=== PATIENT | female | born 1945 | race Caucasian/White ===

== ENCOUNTER → 2017-11-22 | Outpatient (CLI) | payer MEDICARE ==
[~2017-11-22] MED LIST: LAVAP17G PO; METF500 PO; OMEP20ER; [UNRECOGNIZED DRUG - REMARK]; [UNRECOGNIZED DRUG - REMARK]; [UNRECOGNIZED DRUG - REMARK]
== END ==
LOC: LAB 14:30 → LAB SHORT 14:30
PROVIDERS: Family Medicine
DX: Z12.72 Encounter for screening for malignant neoplasm of vagina (principal); Z90.710 Acquired absence of both cervix and uterus
CPT/HCPCS: G0145

== ENCOUNTER → 2020-10-17 | Outpatient (CLI) | payer OTHER ==
[2020-10-17 20:05] LABS: Alanine Aminotransfer (ALT/SGP 28 U/L (12-78); Albumin, Blood 4.1 g/dL (3.4-5.0); Albumin/Globulin Ratio 1.1 (0.8-1.8); Alk Phos 127 U/L (50-136); Anion Gap 5 mmol/L (6-16); Aspartate Aminotrans (AST/SGOT 7 U/L (12-37); Bilirubin, Total 0.7 mg/dL (0.1-1.0); Blood Urea Nitrogen 14 mg/dL (8-24); Bun/Creatinine Ratio 23.5 (12.0-20.0); CO2, Blood 28 mmol/L (21-32); Calcium, Blood 9.1 mg/dL (8.5-10.1); Chloride, Blood 102 mmol/L (98-108); Globulin, Blood 3.6 g/dL (2.2-4.0); Glomerular Filtration Rate >60 (60-); Glucose, Blood 166 mg/dL (70-99); Potassium, Blood 4.2 mmol/L (3.5-5.5); Sodium, Blood 135 mmol/L (136-145); Total Protein, Blood 7.7 g/dL (6.4-8.2)
== END | disposition home or self-care (01) ==
LOC: LAB SHORT 13:00
PROVIDERS: Family Medicine
DX: E11.9 Type 2 diabetes mellitus without complications (principal)
CPT/HCPCS: 80053; 83036

== ENCOUNTER → 2023-01-26 | Outpatient (CLI) | payer OTHER ==
[2023-01-26 16:07] LABS: BASOPHILS ABSOLUTE AUTO 0.04 K/mm3 (0.00-0.23); BASOPHILS PERCENT AUTO 1 % (0-2); EOSINOPHILS ABSOLUTE AUTO 0.12 K/mm3 (0.00-0.68); EOSINOPHILS PERCENT AUTO 2 % (0-6); Hematocrit 39.2 % (33.0-51.0); Hemoglobin 13.7 g/dL (11.5-16.0); IMMATURE GRAN ABSOLUTE AUTO 0.01 K/mm3 (0.00-0.10); IMMATURE GRAN PERCENT AUTO 0 % (0-1); LYMPHOCYTES ABSOLUTE AUTO 1.99 K/mm3 (0.84-5.20); LYMPHOCYTES PERCENT AUTO 31 % (21-46); MONOCYTES ABSOLUTE AUTO 0.45 K/mm3 (0.16-1.47); MONOCYTES PERCENT AUTO 7 % (4-13); Mean Corpuscular HGB 31.8 pg (26.0-34.0); Mean Corpuscular HGB Conc 34.9 g/dL (31.5-36.5); Mean Corpuscular Volume 91 fL (80-100); Mean Platelet Volume 10.3 fL (9.1-12.4); NEUTROPHILS ABSOLUTE AUTO 3.88 K/mm3 (1.96-9.15); NEUTROPHILS PERCENT AUTO 60 % (41-73); Platelet Count 223 K/mm3 (150-400); RDW Coefficient Variation 12.1 % (11.7-14.2); RDW Standard Deviation 40.2 fL (35.1-46.3); Red Blood Cell Count 4.31 M/mm3 (3.80-5.20); White Blood Cell Count 6.49 K/mm3 (4.00-11.30)
[2023-01-26 16:22] LABS: Albumin, Blood 3.6 g/dL (3.4-5.0); Bilirubin, Total 0.6 mg/dL (0.1-1.0); Bun/Creatinine Ratio 28.1 (12.0-20.0); Calcium, Blood 9.1 mg/dL (8.5-10.1); Creatinine, Blood 0.57 mg/dL (0.40-1.00); Globulin, Blood 3.5 g/dL (2.2-4.0); Potassium, Blood 4.3 mmol/L (3.5-5.5); Total Protein, Blood 7.1 g/dL (6.4-8.2)
== END ==
LOC: LAB 16:01 → LAB SHORT 16:01
PROVIDERS: Family Medicine
DX: R06.00 Dyspnea, unspecified (principal)
CPT/HCPCS: 80053; 83880; 84484; 85025; 85379

== ENCOUNTER → 2023-06-14 | Outpatient (CLI) | payer OTHER | LOC: LAB 12:50 → LAB SHORT 12:50 | DX: R30.0 Dysuria (principal) | CPT/HCPCS: 87077; 87086; 87186 ==

== ENCOUNTER → 2024-05-05 | Outpatient (CLI) | payer OTHER | END | disposition home or self-care (01) | LOC: LAB 15:15 → LAB SHORT 15:15 | DX: N39.0 Urinary tract infection, site not specified (principal); R31.9 Hematuria, unspecified | CPT/HCPCS: 87077; 87086; 87186 ==

== ENCOUNTER 2024-06-17 00:09 | Observation (INO) | payer OTHER ==
[~2024-06-17] VITALS: Ht 162.6 cm; Wt 91.8 kg
[2024-06-17 00:52] LABS: BASOPHILS ABSOLUTE AUTO 0.05 K/mm3 (0.00-0.23); BASOPHILS PERCENT AUTO 1 % (0-2); EOSINOPHILS ABSOLUTE AUTO 0.23 K/mm3 (0.00-0.68); EOSINOPHILS PERCENT AUTO 3 % (0-6); Hematocrit 35.8 % (33.0-51.0); Hemoglobin 12.5 g/dL (11.5-16.0); IMMATURE GRAN ABSOLUTE AUTO 0.03 K/mm3 (0.00-0.10); IMMATURE GRAN PERCENT AUTO 0 % (0-1); LYMPHOCYTES ABSOLUTE AUTO 2.34 K/mm3 (0.84-5.20); LYMPHOCYTES PERCENT AUTO 31 % (21-46); MONOCYTES ABSOLUTE AUTO 0.47 K/mm3 (0.16-1.47); MONOCYTES PERCENT AUTO 6 % (4-13); Mean Corpuscular HGB 31.7 pg (26.0-34.0); Mean Corpuscular HGB Conc 34.9 g/dL (31.5-36.5); Mean Corpuscular Volume 91 fL (80-100); Mean Platelet Volume 9.6 fL (9.1-12.4); NEUTROPHILS ABSOLUTE AUTO 4.54 K/mm3 (1.96-9.15); NEUTROPHILS PERCENT AUTO 59 % (41-73); Platelet Count 237 K/mm3 (150-400); RDW Standard Deviation 39.9 fL (35.1-46.3); Red Blood Cell Count 3.94 M/mm3 (3.80-5.20); White Blood Cell Count 7.66 K/mm3 (4.00-11.30)
[2024-06-17 01:17] LABS: Albumin, Blood 3.7 g/dL (3.4-5.0); Albumin/Globulin Ratio 1.2 (0.8-1.8); Bilirubin, Total 0.9 mg/dL (0.1-1.0); Bun/Creatinine Ratio 23.4 (12.0-20.0); Calcium, Blood 9.2 mg/dL (8.5-10.1); Creatinine, Blood 0.6 mg/dL (0.40-1.00); Globulin, Blood 3.2 g/dL (2.2-4.0); Potassium, Blood 4.4 mmol/L (3.5-5.5); Total Protein, Blood 6.9 g/dL (6.4-8.2)
[2024-06-17] MEDS ORDERED: FLU VACC TS2024-25(6MOS UP)/PF 45 MCG/0.5 ML SYRINGE IM ONE (04:10)
[2024-06-17] MEDS ORDERED: Acetaminophen 325 MG TABLET PO PRN (04:15)
[2024-06-17] MEDS ORDERED: Aspirin 81 MG Chew PO SCH (09:00)
[2024-06-17] MEDS ORDERED: Atorvastatin 40 MG Tab PO SCH (09:00)
[2024-06-17 09:53] VITALS: BP 140/88
--- NOTE | 2024-06-17 10:00 | NUR ---
ADMISSION NOTE PATIENT ARRIVED TO ROOM 311 FROM ED. ABLE TO MAKE NEEDS KNOWN. PLEASANT AND COOPERATIVE WITH STAFF. ADMISSION ASSESSMENT COMPLETED WITH PATIENT. DENIES ANY PAIN, ORIENTED TO ROOM AND CALL LIGHT SYSTEM. PATIENT STATES SUDDEN ONSET OF DIZZINESS AND DIFFICULTY WALKING OCCURRED LAST NIGHT BRINGING HER TO THE ED. PLAN TO HAVE MRI LATER TODAY TO RULE OUT CVA. Q4H NEURO CHECKS. WILL CONTINUE TO MONITOR.
[2024-06-17] MEDS ORDERED: LISI5 PO (11:01)
[2024-06-17] MEDS ORDERED: PROPRANOLOL HC120 MG PO (11:02)
[2024-06-17] MEDS ORDERED: ATOR40TA PO (11:02)
[2024-06-17] MEDS ORDERED: OZEMPIC2 MG/0.75 SC (11:04)
[2024-06-17 15:07] VITALS: BP 112/67
--- NOTE | 2024-06-17 18:32 | NUR ---
SHIFT SUMMARY PATIENT A/OX4, ABLE TO MAKE NEEDS KNOWN. CONTINUES WITH Q4H NEURO CHECKS, NO CHANGES SINCE ADMISSION. COTNINUES WITH POOR BALANCE, 1 PERSON ASSIST. ORIENTED TO OWN ABILITY. ASSESSED BY PT THIS SHIFT AND RECOMMENDATIONS FOR SNF. SON, HARVINDER, AT BEDSIDE THROUGHOUT SHIFT AND PATIENT'S SISTER'S CAME TO VISIT WELL. NO OTHER CONCERNS AT THIS TIME.
[2024-06-17 20:15] VITALS: BP 119/68
--- NOTE | 2024-06-18 03:53 | NUR ---
SHIFT SUMMARY PT IS PLEASANT, A&O X4, ABLE TO MAKE HER NEEDS KNOWN, AND COOPERATIVE WITH CARE. PT USING FWW, GAITBELT, GAIT IS STEADY, MOSTLY SBA TO THE RESTROOM. PT DENIES NUMBNESS AND TINGLING. WOULD LIKE TO D/C TO HOME TODAY. NO ACUTE EVENTS DURING THIS SHIFT. TELE: SR @72, PT DENIES PAIN/PRESSURE. PT IS ON RA. SAT'S>96%. BED ALARM FOR SAFETY. BED AT LOWEST POSITION, CALL LIGHT WITHIN REACH.
[2024-06-18 04:15] VITALS: BP 129/75
[2024-06-18 04:58] LABS: BASOPHILS ABSOLUTE AUTO 0.05 K/mm3 (0.00-0.23); BASOPHILS PERCENT AUTO 1 % (0-2); EOSINOPHILS ABSOLUTE AUTO 0.27 K/mm3 (0.00-0.68); EOSINOPHILS PERCENT AUTO 4 % (0-6); Hematocrit 35.9 % (33.0-51.0); Hemoglobin 12.5 g/dL (11.5-16.0); IMMATURE GRAN ABSOLUTE AUTO 0.03 K/mm3 (0.00-0.10); IMMATURE GRAN PERCENT AUTO 1 % (0-1); LYMPHOCYTES ABSOLUTE AUTO 2.15 K/mm3 (0.84-5.20); LYMPHOCYTES PERCENT AUTO 34 % (21-46); MONOCYTES ABSOLUTE AUTO 0.45 K/mm3 (0.16-1.47); MONOCYTES PERCENT AUTO 7 % (4-13); Mean Corpuscular HGB 31.7 pg (26.0-34.0); Mean Corpuscular HGB Conc 34.8 g/dL (31.5-36.5); Mean Corpuscular Volume 91 fL (80-100); Mean Platelet Volume 9.7 fL (9.1-12.4); NEUTROPHILS ABSOLUTE AUTO 3.45 K/mm3 (1.96-9.15); NEUTROPHILS PERCENT AUTO 54 % (41-73); Platelet Count 211 K/mm3 (150-400); RDW Coefficient Variation 12.1 % (11.7-14.2); RDW Standard Deviation 40.4 fL (35.1-46.3); Red Blood Cell Count 3.94 M/mm3 (3.80-5.20)
[2024-06-18 05:28] LABS: Calcium, Blood 9.2 mg/dL (8.5-10.1); Creatinine, Blood 0.64 mg/dL (0.40-1.00); Potassium, Blood 4.3 mmol/L (3.5-5.5)
[2024-06-18 07:30] VITALS: BP 111/72
--- NOTE | 2024-06-18 08:25 | NUR ---
LEFT MESSAGE WITH HOSPITALIST TO RESUME PATIENT'S HOME MEDICATION. WILL FOLLOW UP.
[2024-06-18] MEDS ORDERED: MetFORMIN HCl 500 mg PO SCH (08:48)
[2024-06-18] MEDS ORDERED: Lisinopril 5 MG Tab PO SCH (09:00)
[2024-06-18] MEDS ORDERED: Propranolol HCL 60 MG CAPCR PO SCH (09:00)
[2024-06-18] MEDS ORDERED: CLOP75 PO (13:02)
[2024-06-18] MEDS ORDERED: ASPI81CH PO (13:02)
--- NOTE | 2024-06-18 13:52 | NUR ---
DISCHARGE NOTE PATIENT A/OX4 ABLE TO MAKE NEEDS KNOWN. PLEASANT AND COOPERATIVE. PATIENT WITH DISCHARGE ORDER, MEDICATION AND FOLLOW UP INSTRUCTIONS PROVIDED TO PATIENT. SON, HARVINDER, AT BEDSIDE. PATIENT STATES SHE HAS A WALKER AT HOME. PLAN TO HAVE HOMEHEALTH. PATIENT AGREEABLE TO PLAN AND RECEPTIVE OF EDUCATION. PIV AND TELEMETRY REMOVED PRIOR TO DISCHARGE. ASSISTED TO FAMILY VEHICLE BY [facility] STAFF.
== END 2024-06-18 13:23 | disposition home health service (06) ==
LOC: ER 00:09 → ERHOLD 00:10 → MEDS 09:52 → ENPENDDIS 06-18 12:56 → MEDS 06-18 13:23
PROVIDERS: Family Medicine; Physician Assistant; ADMIT Student in an Organized Health Care Education/Training Program
DX: G45.9 Transient cerebral ischemic attack, unspecified (principal); I35.0 Nonrheumatic aortic (valve) stenosis; I50.32 Chronic diastolic (congestive) heart failure; Z79.84 Long term (current) use of oral hypoglycemic drugs; Z88.5 Allergy status to narcotic agent; Z88.8 Allergy status to other drugs, medicaments and biological substances
CPT/HCPCS: 36415; 70450; 70551; 80048; 80053; 82947; 83721; 85025; 93005; 93010; 93306; 97110; 97112; 97161; 99285-25; A9270; G0378

== ENCOUNTER 2024-10-02 10:07 | Emergency (ER) | payer OTHER ==
[~2024-10-02] VITALS: Ht 162.6 cm; Wt 95.2 kg
[~2024-10-02 10:07] MED LIST changes: +ASPI81CH PO; +ATOR40TA PO; +CLOP75 PO; +LISI5 PO; +OZEMPIC2 MG/0.75 SC; +PROPRANOLOL HC120 MG PO
[2024-10-02] MEDS ORDERED: LIPITOR80 MG PO (10:31)
[2024-10-02] MEDS ORDERED: NS 1,000 ML IV SCH (11:20)
[2024-10-02 11:28] LABS: BASOPHILS ABSOLUTE AUTO 0.06 K/mm3 (0.00-0.23); BASOPHILS PERCENT AUTO 1 % (0-2); EOSINOPHILS ABSOLUTE AUTO 0.28 K/mm3 (0.00-0.68); EOSINOPHILS PERCENT AUTO 4 % (0-6); Hematocrit 36.3 % (33.0-51.0); Hemoglobin 12.5 g/dL (11.5-16.0); IMMATURE GRAN ABSOLUTE AUTO 0.02 K/mm3 (0.00-0.10); IMMATURE GRAN PERCENT AUTO 0 % (0-1); LYMPHOCYTES PERCENT AUTO 24 % (21-46); MONOCYTES PERCENT AUTO 6 % (4-13); Mean Corpuscular HGB 31.7 pg (26.0-34.0); Mean Corpuscular HGB Conc 34.4 g/dL (31.5-36.5); Mean Corpuscular Volume 92 fL (80-100); Mean Platelet Volume 10.1 fL (9.1-12.4); NEUTROPHILS ABSOLUTE AUTO 5.19 K/mm3 (1.96-9.15); NEUTROPHILS PERCENT AUTO 65 % (41-73); Platelet Count 258 K/mm3 (150-400); RDW Coefficient Variation 12.4 % (11.7-14.2); Red Blood Cell Count 3.94 M/mm3 (3.80-5.20); White Blood Cell Count 7.95 K/mm3 (4.00-11.30)
[2024-10-02 11:52] LABS: Albumin, Blood 3.3 g/dL (3.4-5.0); Albumin/Globulin Ratio 0.9 (0.8-1.8); Bilirubin, Total 0.9 mg/dL (0.1-1.0); Bun/Creatinine Ratio 22.4 (12.0-20.0); Calcium, Blood 8.5 mg/dL (8.5-10.1); Creatinine, Blood 0.49 mg/dL (0.40-1.00); Globulin, Blood 3.5 g/dL (2.2-4.0); Potassium, Blood 4.1 mmol/L (3.5-5.5); Total Protein, Blood 6.8 g/dL (6.4-8.2)
[2024-10-02] MEDS ORDERED: PROPRANOLOL HC160 MG PO (16:19)
[2024-10-02] MEDS ORDERED: XARELTO15 MG PO (16:19)
[2024-10-02] MEDS ORDERED: Propranolol HCL 80 MG CAPCR PO ONE (16:20)
[2024-10-02 17:05] VITALS: BP 106/57
== END 2024-10-02 17:10 | disposition home or self-care (01) ==
LOC: ER 10:07
PROVIDERS: Physician Assistant
DX: I48.20 Chronic atrial fibrillation, unspecified (principal); Z59.89 Other problems related to housing and economic circumstances; Z88.5 Allergy status to narcotic agent; Z88.9 Allergy status to unspecified drugs, medicaments and biological substances; Z79.02 Long term (current) use of antithrombotics/antiplatelets; Z79.84 Long term (current) use of oral hypoglycemic drugs; Z79.899 Other long term (current) drug therapy; Z79.85 Long-term (current) use of injectable non-insulin antidiabetic drugs; Z79.82 Long term (current) use of aspirin
CPT/HCPCS: 71046; 71260; 80053; 83690; 83880; 84484; 85025; 85379; 93005; 93010; 99285-25; A9270; J7030; Q9967

== ENCOUNTER → 2025-04-08 | Outpatient (CLI) | payer OTHER ==
[~2025-04-08] MED LIST changes: +LIPITOR80 MG PO; +PROPRANOLOL HC160 MG PO; +XARELTO15 MG PO
== END ==
LOC: LAB SHORT 14:09 → LAB 14:09
DX: N39.0 Urinary tract infection, site not specified (principal); R31.9 Hematuria, unspecified
CPT/HCPCS: 87077; 87086; 87186

== ENCOUNTER → 2025-04-28 | Outpatient (CLI) | payer OTHER | LOC: LAB SHORT 17:02 → LAB 17:02 | DX: J02.9 Acute pharyngitis, unspecified (principal) | CPT/HCPCS: 87081 ==

== ENCOUNTER → 2025-05-29 | Outpatient (CLI) | payer OTHER ==
[2025-05-29 13:12] LABS: Creatinine, Urine Random 101.0 mg/dL (27.00-270.00); Microalb/Creat Ratio UR, Rand 8.683 mg/g (0.000-30.000); Microalbumin, Random Urine 8.77 mg/L (0.000-20.000)
== END | disposition home or self-care (01) ==
LOC: LAB 10:47 → LAB SHORT 10:47
PROVIDERS: Family Medicine
DX: E11.42 Type 2 diabetes mellitus with diabetic polyneuropathy (principal); E11.36 Type 2 diabetes mellitus with diabetic cataract; E11.59 Type 2 diabetes mellitus with other circulatory complications; E11.69 Type 2 diabetes mellitus with other specified complication
CPT/HCPCS: 82043; 82570